=== PATIENT | male | born 1930 | race Caucasian/White ===

== ENCOUNTER 2018-03-29 14:57 | Inpatient (IN) | payer OTHER ==
[2018-03-29 15:09] VITALS: BMI 31.7
--- NOTE | 2018-03-29 16:57 | PDOC ---
Attending Attestation - Resident Resident Name: Joshua Florence - ED Attending Attestation I have performed the following: I have examined & evaluated the patient, The case was reviewed & discussed with the resident, I agree w/resident's findings & plan, Exceptions are as noted - HPI HPI: 03/29/18 18:43 The patient is an 88 year old male, with a significant PMH of Afib on eliquis and has a pacemaker, HTN, pre-diabetic, previous strokes, who presents to the emergency department s/p fall while trying to get out of his wheelchair, and notes hitting his face. Unknown LOC. Pt c/o generalized weakness and states he has fallen 4 times over the last week. Denies LOC, headache, changes in vision, and any pain. The patient denies chest pain, shortness of breath and dizziness. Denies fever, chills, nausea, vomit, diarrhea and constipation. Denies dysuria, frequency, urgency and hematuria. Allergies: Levofloxacin, rosuvastatin, sulfamethoxazole, trimethoprim - Physicial Exam PE: 03/29/18 18:45 agree with resident exam - Medical Decision Making 03/29/18 18:45 88yo M presents to the ED with multiple falls over the last week and generalized weakness. CTH/CT c-spine neg for acute injury. W/u revealing of UTI , -> pt covered with ceftriaxone. UTI likely cause of generalized weakness. Pt also hypotensive initially to 90s/40s, on my repeat 109/60. Plan to admit to for observation. <Natacha Ward - Last Filed: 03/29/18 18:47> Attestations - Attestations 03/29/18 17:18 Documentation prepared by Roopa Elkins, acting as medical claims examiner for Natacha Ward MD. <Roopa Elkins - Last Filed: 03/29/18 17:18>
--- NOTE | 2018-03-29 17:30 | PDOC ---
History of Present Illness - General Chief Complaint: Injury Stated Complaint: FALL Time Seen by Provider: 03/29/18 15:44 History Source: Patient Exam Limitations: No Limitations - History of Present Illness Initial Comments: 03/29/18 19:09 88 yo male pmh DM, HTN, HLD, afib on Eliquis, CAD and CVA (residual right hand weakness) presents from [facility] to the ED for a fall. Pt AOX3 and relatively good historian. States while attempting to get up out of his wheelchair at [employer] this afternoon, he fell forward due to loss of balance and hit his his forehead on the ground. Denies CP, palpitations or SOB prior to fall and denies LOC, DESHPANDE, changes in vision/speech, N/V, or weakness/sensory changes into 1 ext after the fall. Pt currently has no complaints but states he has fallen greater than 3 times in the last 1 weak without medical evaluation. Past History - Past Medical History Allergies/Adverse Reactions: Allergies Allergy/AdvReac Type Severity Reaction Status Date / Time levofloxacin [From Levaquin] Allergy Verified 03/29/18 15:04 rosuvastatin [From Crestor] Allergy Verified 03/29/18 15:04 sulfamethoxazole Allergy Verified 03/29/18 15:04 [From Bactrim] trimethoprim [From Bactrim] Allergy Verified 03/29/18 15:04 Home Medications: Ambulatory Orders Amlodipine Besylate 5 mg PO BID 03/29/18 Apixaban [Eliquis] 5 mg PO BID 03/29/18 Diphenhydramine HCl 25 mg PO DAILY 03/29/18 Fluticasone Prop 0.05% Nasal [Flonase -] 1 - 2 spray NS BID 03/29/18 Folic Acid 1 mg PO DAILY 03/29/18 Furosemide 40 mg PO DAILY 03/29/18 Glipizide Xl [Glucotrol Xl -] 5 mg PO HS 03/29/18 Glipizide Xl [Glucotrol Xl -] 10 mg PO DAILY@0700 03/29/18 Insulin (Levemir) [Levemir Vial] 15 unit SQ DAILY 03/29/18 Loperamide HCl [Loperamide] 2 mg PO PRN PRN 03/29/18 Loratadine 10 mg PO DAILY 03/29/18 Metolazone 2.5 mg PO ASDIR 03/29/18 Omeprazole 20 mg PO DAILY 03/29/18 Oxybutynin Chloride [Ditropan Xl] 10 mg PO BID 03/29/18 Propranolol HCl [Propranolol HCl ER] 160 mg PO DAILY 03/29/18 Propylene Glycol/Peg 400/Pf [Lubricant Eye 0.4%-0.3% Drops] 1 each OP DAILY Simvastatin 20 mg PO HS 03/29/18 Sitagliptin Phosphate [Januvia] 100 mg PO DAILY 03/29/18 Tamsulosin HCl [Flomax] 0.4 mg PO DAILY 03/29/18 Valsartan [Diovan] 80 mg PO DAILY 03/29/18 Cardiac Disorders: Yes (afib,CAD) COPD: No Diabetes: Yes HTN: Yes Hypercholesterolemia: Yes - Suicide/Smoking/Psychosocial Hx Smoking History: Never smoked Have you smoked in the past 12 months: No Information on smoking cessation initiated: No Hx Alcohol Use: No Drug/Substance Use Hx: No Review of Systems - Review of Systems Constitutional: No: Chills, Fever *Physical Exam - Vital Signs Last Vital Signs Temp Pulse Resp BP Pulse Ox 97.1 F L 57 L 18 91/40 L 100 03/29/18 15:04 03/29/18 15:04 03/29/18 15:04 03/29/18 15:04 03/29/18 15:04 Moderate Sedation - Procedure Monitoring Vital Signs: Procedure Monitoring Vital Signs Temperature 97.1 F L 03/29/18 15:04 Pulse Rate 57 L 03/29/18 15:04 Respiratory Rate 18 03/29/18 15:04 Blood Pressure 91/40 L 03/29/18 15:04 O2 Sat by Pulse Oximetry (%) 100 03/29/18 15:04 ED Treatment Course - LABORATORY CBC & Chemistry Diagram: 03/29/18 15:30 03/29/18 15:30 Medical Decision Making - Medical Decision Making 03/29/18 17:02 spoke with vonda htn, hld, dm, cad, afib eliquis 5 mg *DC/Admit/Observation/Transfer Diagnosis at time of Disposition: UTI (urinary tract infection) Qualifiers: Urinary tract infection type: site unspecified Hematuria presence: without hematuria Qualified Code(s): N39.0 - Urinary tract infection, site not specified Fall Qualifiers: Encounter type: subsequent encounter Qualified Code(s): W19.XXXD - Unspecified fall, subsequent encounter - Discharge Dispostion Decision to Admit order: Yes - Referrals - Patient Instructions - Post Discharge Activity
[2018-03-29 17:46] LABS: BASO % 0.8 % (0-2.0); EOS % 7.8 % (0-4.5); HEMATOCRIT 37.7 % (35.4-49); HEMOGLOBIN 12.8 GM/dL (11.7-16.9); LYMPH % 9.2 % (8-40); MCH 29.4 pg (25.7-33.7); MEAN CELL VOLUME 86.5 fl (80-96); MEAN PLT VOLUME 9.3 fl (7.5-11.1); MONO % 10.8 % (3.8-10.2); NEUT % 71.4 % (42.8-82.8); PLATELET COUNT 193 K/MM3 (134-434); RBC 4.36 M/mm3 (4.00-5.60); RDW 15.8 % (11.9-15.9); WHITE BLOOD COUNT 9.2 K/mm3 (4.0-10.0)
[2018-03-29 18:02] LABS: URINE APPEARANCE CLEAR; URINE BILIRUBIN NEGATIVE (<2.0 mg/dL); URINE COLOR LTYELLOW; URINE GLUCOSE (UA) NEGATIVE (NEGATIVE); URINE KETONE NEGATIVE (NEGATIVE); URINE LEUK ESTERASE 1+ (NEGATIVE); URINE NITRITE POSITIVE (NEGATIVE); URINE PROTEIN NEGATIVE (NEGATIVE); URINE UROBILINOGEN NEGATIVE mg/dL (0.2-1.0)
[2018-03-29 18:12] LABS: EPI CELLS RARE /HPF (FEW); URINE HYALINE CAST 3 /lpf; URINE MUCUS RARE
[2018-03-29 18:17] LABS: INR 2.04 (0.83-1.09); PROTHROMBIN TIME (PATIENT) 24.2 SEC (9.7-13.0)
[2018-03-29 18:19] LABS: ACTIVATED PTT 38.1 SECONDS (25.2-36.5)
[2018-03-29] MEDS ORDERED: CEFTRIAXONE 1,000 MG in DEXTROSE 5%-WATER - 50 ML IVPB ONE (18:33)
[2018-03-29] MEDS ORDERED: CEFTRIAXONE 1 GM/50 ML BAG ONE (18:38)
--- NOTE | 2018-03-29 23:02 | HP ---
CHIEF COMPLAINT: Frequent Falls, Generalized Weakness PCP: Dr. Reyes HISTORY OF PRESENT ILLNESS: This is a 88 y/o man from [facility] with a PMHx of: Afib (on Eliquis), PPM, HTN, DM, CVA (right hand residual), CKD, BPH, Generalized Weakness. Who presents to the ED for evaluation frequent falls s/p fall out of w/c today. Patient reports while attending [facility] in the [facility] he fell out of the wheelchair hitting his face. Patient wears glasses and reports an abrasion to the bridge of his nose. Patient reports chronic itching to his body.Patient denies LOC. Patient denies fever, chills, cough, SOB, CP, palpitations, N/V/D, constipation. While in the ED per ED staff bed bugs where noted on the patient. Patient was placed in isolation. ER course was notable for: (1) UA- +nitrate, +1 leukocyte esterase (2) Head CT- no evidence of acute intracranial pathology, chronic left basal ganglia/frontal dominguez radiata infarct (3) C- Spine CT- neg fx, multi level degenerative changes Recent Travel: None PAST MEDICAL HISTORY: See HPI PAST SURGICAL HISTORY: Social History: Smoking: Never Alcohol: None Drugs: None resides in SNF Family History: Non-contributory Allergies levofloxacin [From Levaquin] Allergy (Verified 03/29/18 15:04) rosuvastatin [From Crestor] Allergy (Verified 03/29/18 15:04) sulfamethoxazole [From Bactrim] Allergy (Verified 03/29/18 15:04) trimethoprim [From Bactrim] Allergy (Verified 03/29/18 15:04) HOME MEDICATIONS: Home Medications Medication Instructions Recorded Amlodipine Besylate 5 mg PO BID 03/29/18 Apixaban [Eliquis] 5 mg PO BID 03/29/18 Diphenhydramine HCl 25 mg PO DAILY 03/29/18 Fluticasone Prop 0.05% Nasal 1 - 2 spray NS BID 03/29/18 [Flonase -] Folic Acid 1 mg PO DAILY 03/29/18 Furosemide 40 mg PO DAILY 03/29/18 Glipizide Xl [Glucotrol Xl -] 5 mg PO HS 03/29/18 Glipizide Xl [Glucotrol Xl -] 10 mg PO DAILY@0700 03/29/18 Insulin (Levemir) [Levemir Vial] 15 unit SQ DAILY 03/29/18 Loperamide HCl [Loperamide] 2 mg PO PRN PRN 03/29/18 Loratadine 10 mg PO DAILY 03/29/18 Metolazone 2.5 mg PO ASDIR 03/29/18 Omeprazole 20 mg PO DAILY 03/29/18 Oxybutynin Chloride [Ditropan Xl] 10 mg PO BID 03/29/18 Propranolol HCl [Propranolol HCl 160 mg PO DAILY 03/29/18 ER] Propylene Glycol/Peg 400/Pf 1 each OP DAILY 03/29/18 [Lubricant Eye 0.4%-0.3% Drops] Simvastatin 20 mg PO HS 03/29/18 Sitagliptin Phosphate [Januvia] 100 mg PO DAILY 03/29/18 Tamsulosin HCl [Flomax] 0.4 mg PO DAILY 03/29/18 Valsartan [Diovan] 80 mg PO DAILY 03/29/18 REVIEW OF SYSTEMS CONSTITUTIONAL: generalized weakness Absent: fever, chills, diaphoresis, malaise, loss of appetite, weight change HEENT: abrasion to nare Absent: rhinorrhea, nasal congestion, throat pain, throat swelling, difficulty swallowing, mouth swelling, ear pain, eye pain, visual changes CARDIOVASCULAR: Absent: chest pain, syncope, palpitations, irregular heart rate, lightheadedness , peripheral edema RESPIRATORY: Absent: cough, shortness of breath, dyspnea with exertion, orthopnea, wheezing, stridor, hemoptysis GASTROINTESTINAL: Absent: abdominal pain, abdominal distension, nausea, vomiting, diarrhea, constipation, melena, hematochezia GENITOURINARY: Absent: dysuria, frequency, urgency, hesitancy, hematuria, flank pain, genital pain MUSCULOSKELETAL: Absent: myalgia, arthralgia, joint swelling, back pain, neck pain SKIN: Absent: rash, itching, pallor HEMATOLOGIC/IMMUNOLOGIC: Absent: easy bleeding, easy bruising, lymphadenopathy, frequent infections ENDOCRINE: Absent: unexplained weight gain, unexplained weight loss, heat intolerance, cold intolerance NEUROLOGIC: Absent: headache, focal weakness or paresthesias, dizziness, unsteady gait, seizure, mental status changes, bladder or bowel incontinence PSYCHIATRIC: Absent: anxiety, depression, suicidal or homicidal ideation, hallucinations. PHYSICAL EXAMINATION Vital Signs - 24 hr 03/29/18 03/29/18 15:04 20:02 Temperature 97.1 F L 98.5 F Pulse Rate 57 L Pulse Rate [ 75 Left Radial] Respiratory 18 19 Rate Blood Pressure 91/40 L Blood Pressure 119/62 [Right Arm] O2 Sat by Pulse 100 96 Oximetry (%) GENERAL: Awake, alert, and fully oriented, in no acute distress. HEAD: Normal with no signs of trauma. EYES: Pupils equal, round and reactive to light, extraocular movements intact, sclera anicteric, conjunctiva clear. No lid lag. EARS, NOSE, THROAT: Ears normal, nares patent, oropharynx clear without exudates. Dry mucous membranes. NECK: Normal range of motion, supple without lymphadenopathy, JVD, or masses. LUNGS: Breath sounds equal, clear to auscultation bilaterally. No wheezes, and no crackles. No accessory muscle use. HEART: Irregular rate and rhythm, normal S1 and S2 without murmur, rub or gallop. ABDOMEN: obese, soft, nontender, not distended, normoactive bowel sounds, no guarding, no rebound, no masses. No hepatomegaly or splenomegaly. MUSCULOSKELETAL: Normal range of motion at all joints. No bony deformities or tenderness. No CVA tenderness. UPPER EXTREMITIES: 2+ pulses, warm, well-perfused. No cyanosis. No clubbing. No peripheral edema. LOWER EXTREMITIES: 2+ pulses, warm, well-perfused. No calf tenderness. No peripheral edema. NEUROLOGICAL: Cranial nerves II-XII intact. Normal speech. Gait not observed. PSYCHIATRIC: Cooperative. Good eye contact. Appropriate mood and affect. SKIN: Warm, dry, normal turgor, normal capillary refill. erythematous, pruritic lesions noted to arms, legs, abdomen Laboratory Results - last 24 hr 03/29/18 03/29/18 03/29/18 15:30 15:30 15:35 WBC 9.2 RBC 4.36 Hgb 12.8 Hct 37.7 MCV 86.5 MCH 29.4 MCHC 34.0 RDW 15.8 Plt Count 193 MPV 9.3 Absolute Neuts (auto) 6.6 Neutrophils % 71.4 Lymphocytes % 9.2 Monocytes % 10.8 H Eosinophils % 7.8 H Basophils % 0.8 Nucleated RBC % 0 PT with INR 24.20 H INR 2.04 H PTT (Actin FS) 38.1 H Creatine Kinase Troponin I Urine Color Ltyellow Urine Appearance Clear Urine pH 5.0 Ur Specific Reva 1.010 Urine Protein Negative Urine Glucose (UA) Negative Urine Ketones Negative Urine Blood Negative Urine Nitrite Positive Urine Bilirubin Negative Urine Urobilinogen Negative Ur Leukocyte Esterase 1+ H Urine WBC (Auto) 12 Urine RBC (Auto) 1 Ur Epithelial Cells Rare Hyaline Casts 3 Urine Mucus Rare 03/29/18 17:22 WBC RBC Hgb Hct MCV MCH MCHC RDW Plt Count MPV Absolute Neuts (auto) Neutrophils % Lymphocytes % Monocytes % Eosinophils % Basophils % Nucleated RBC % PT with INR INR PTT (Actin FS) Creatine Kinase 105 Troponin I < 0.02 Urine Color Urine Appearance Urine pH Ur Specific Reva Urine Protein Urine Glucose (UA) Urine Ketones Urine Blood Urine Nitrite Urine Bilirubin Urine Urobilinogen Ur Leukocyte Esterase Urine WBC (Auto) Urine RBC (Auto) Ur Epithelial Cells Hyaline Casts Urine Mucus ASSESSMENT/PLAN: This is a 88 y/o man placed in Observation for UTI, s/p Fall, Bed Bug Bites for further evaluation of their emergent condition. Plan: See Problem List FEN PO fluids as tolerated Replete lytes prn Low Na, Diabetic Diet DVT ppx SCDs Continue Eliquis Code Status: DNR/DNI, MOLST, HCP Mateusz Coronel [phone] Dispo: Observation Problem List - Problem (1) UTI (urinary tract infection) Assessment/Plan: UA- +nitrate, +1 leukocyte esterase Urine Culture-pending Ceftriaxone given in ED, will continue Monitor CBC Monitor vitals Code(s): N39.0 - URINARY TRACT INFECTION, SITE NOT SPECIFIED Qualifiers: Urinary tract infection type: site unspecified Hematuria presence: without hematuria Qualified Code(s): N39.0 - Urinary tract infection, site not specified (2) Fall Assessment/Plan: Head CT- no evidence of acute intracranial pathology. Chronic leftbasal ganglia/ frontal dominguez radiata infarct C- Spine CT- neg fx, multilevel degenerative changes Fall precautions Tylenol prn Code(s): W19.XXXA - UNSPECIFIED FALL, INITIAL ENCOUNTER Qualifiers: Encounter type: subsequent encounter Qualified Code(s): W19.XXXD - Unspecified fall, subsequent encounter (3) Generalized weakness Assessment/Plan: Likely secondary to UTI Monitor CBC, BMP Monitor vitals Neurochecks Fall Precautions Code(s): R53.1 - WEAKNESS (4) Bed bug bite Assessment/Plan: Isolation Precautions ID consult Benadryl for pruritus Code(s): W57.XXXA - BIT/STUNG BY NONVENOM INSECT & OTH NONVENOM ARTHROPODS, INIT (5) Diabetes mellitus Assessment/Plan: stable BGMs Continue home meds Code(s): E11.9 - TYPE 2 DIABETES MELLITUS WITHOUT COMPLICATIONS (6) A-fib Assessment/Plan: [id number] Continue Eliquis EKG- Ventricular Paced Code(s): I48.91 - UNSPECIFIED ATRIAL FIBRILLATION (7) HTN (hypertension) Assessment/Plan: stable Monitor BP Continue home meds Monitor renal function Code(s): I10 - ESSENTIAL (PRIMARY) HYPERTENSION (8) BPH (benign prostatic hyperplasia) Assessment/Plan: Continue home meds Code(s): N40.0 - BENIGN PROSTATIC HYPERPLASIA WITHOUT LOWER URINRY TRACT SYMP (9) History of CVA with residual deficit Assessment/Plan: Head Ct- neg acute intracranial pathology, chronic left basal ganglia/frontal dominguez radiata infarct Continue home meds Fall Precautions Code(s): I69.30 - UNSPECIFIED SEQUELAE OF CEREBRAL INFARCTION Visit type - Emergency Visit Emergency Visit: Yes ED Registration Date: 03/29/18 Care time: The patient presented to the Emergency Department on the above date and was hospitalized for further evaluation of their emergent condition. - New Patient This patient is new to me today: Yes Date on this admission: 03/29/18 - Critical Care Critical Care patient: No
[2018-03-29 23:17] LABS: BLOOD UREA NITROGEN 43 mg/dL (7-18); GLUCOSE,RANDOM 101 mg/dL (74-106)
[2018-03-29 23:18] LABS: ALBUMIN 3.5 g/dl (3.4-5.0); ANION GAP 8 MMOL/L (8-16); BILIRUBIN,TOTAL 0.4 mg/dL (0.2-1); CALCIUM 9.1 mg/dL (8.5-10.1); CHLORIDE 99 mmol/L (98-107); CO2 29 mmol/L (21-32); CREATININE 1.4 mg/dL (0.55-1.3); POTASSIUM 3.8 mmol/L (3.5-5.1); SGOT/AST 43 U/L (15-37); SGPT/ALT 30 U/L (13-61); SODIUM 136 mmol/L (136-145)
[2018-03-29 23:19] LABS: ALK PHOS 185 U/L (45-117)
[2018-03-30] MEDS ORDERED: ACETAMINOPHEN 325 MG TABLET (FP) PO PRN (01:29)
[2018-03-30] MEDS ORDERED: LOPERAMIDE HCL 2 MG CAPSULE PO PRN (01:41)
[2018-03-30] MEDS ORDERED: diphenhydrAMINE HCL 25 MG CAPSULE (FP) PO PRN (01:41)
[2018-03-30] MEDS ORDERED: PT OWN MED DRAWER 7, Y5N ONE ×3 (06:48→21:34)
[2018-03-30] MEDS ORDERED: glipiZIDE-XL 10 MG TAB.ER.24 (FP) PO SCH (07:00)
[2018-03-30] MEDS ORDERED: sitaGLIPtin PHOSPHATE 100 MG TABLET (FP) PO SCH (07:00)
[2018-03-30 07:34] LABS: BASO % 0.4 % (0-2.0); EOS % 6.4 % (0-4.5); HEMATOCRIT 34.9 % (35.4-49); HEMOGLOBIN 11.8 GM/dL (11.7-16.9); LYMPH % 7.9 % (8-40); MCH 28.9 pg (25.7-33.7); MCHC 33.8 g/dl (32.0-35.9); MEAN CELL VOLUME 85.5 fl (80-96); MEAN PLT VOLUME 9.3 fl (7.5-11.1); MONO % 9.8 % (3.8-10.2); NEUT % 75.5 % (42.8-82.8); PLATELET COUNT 174 K/MM3 (134-434); RBC 4.08 M/mm3 (4.00-5.60); RDW 15.4 % (11.9-15.9); WHITE BLOOD COUNT 8.9 K/mm3 (4.0-10.0)
[2018-03-30 08:24] LABS: ANION GAP 9 MMOL/L (8-16); BLOOD UREA NITROGEN 37 mg/dL (7-18); CALCIUM 8.5 mg/dL (8.5-10.1); CHLORIDE 100 mmol/L (98-107); CO2 28 mmol/L (21-32); CREATININE 1.2 mg/dL (0.55-1.3); GLUCOSE,RANDOM 106 mg/dL (74-106); MAGNESIUM 2.2 mg/dL (1.8-2.4); PHOSPHOROUS 3.3 mg/dL (2.5-4.9); POTASSIUM 3.6 mmol/L (3.5-5.1); SODIUM 137 mmol/L (136-145)
[2018-03-30] MEDS ORDERED: TAMSULOSIN HCL 0.4 MG CAP PO SCH (08:30)
[2018-03-30] MEDS ORDERED: DEXTROSE 5%-WATER - 50 ML IVPB ONE (09:12)
[2018-03-30] MEDS ORDERED: cefTRIAXone SODIUM 1 GM VIAL ONE (09:12)
[2018-03-30] MEDS ORDERED: PATIENT'S OWN MEDICATION (NON-FORMULARY) (Oxybutynin Chloride [Ditropan Xl] 10 MG) PO SCH (10:00)
[2018-03-30] MEDS: FUROSEMIDE 40 MG TABLET (FP) PO SCH (10:06)
[2018-03-30] MEDS: SOLIFENACIN SUCCINATE 5 MG TAB (FP) PO SCH ×2 (10:06→21:43)
[2018-03-30] MEDS: LORATADINE 10 MG TABLET PO SCH (10:06)
[2018-03-30] MEDS: PANTOPRAZOLE 20 MG TABLET (FP) PO SCH (10:06)
[2018-03-30] MEDS: METOLAZONE 2.5 MG TABLET (FP) PO SCH (10:07)
[2018-03-30] MEDS: FOLIC ACID 1 MG TABLET (FP) PO SCH (10:07)
[2018-03-30] MEDS: CEFTRIAXONE 1 GM in DEXTROSE 5%-WATER - 50 ML IVPB SCH (10:07)
[2018-03-30] MEDS: VALSARTAN 80 MG TABLET (UD) PO SCH (10:07)
[2018-03-30] MEDS: FLUTICASONE PROP 0.05% 16 GM NASAL SPRAY NS SCH ×2 (10:07→21:43)
[2018-03-30] MEDS: APIXABAN 5 MG TABLET PO SCH ×2 (10:07→21:43)
--- NOTE | 2018-03-30 10:53 | PN ---
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 s/p fall out of w/c- denies syncope has scratch cordero on chest, arms and legs papular rash on chest no rash groin/hands, elbows, wrists no dysuria +frequent falls both at prior residence and at the [facility] uses a w/c no one else with a rash labs notable for eosinophilia s/p fall rash- doubt bedbugs cannot r/o scabies would treat with permethrin suggest derm evaluation- ?biopsy chest rash possible UTI- on rocephin, would d/c if culture is negative contact isolation for 24 hours after permethrin is complete Problem List - Problems (1) Fall Code(s): W19.XXXA - UNSPECIFIED FALL, INITIAL ENCOUNTER Qualifiers: Encounter type: subsequent encounter Qualified Code(s): W19.XXXD - Unspecified fall, subsequent encounter (2) Rash and nonspecific skin eruption Code(s): R21 - RASH AND OTHER NONSPECIFIC SKIN ERUPTION (3) UTI (urinary tract infection) Code(s): N39.0 - URINARY TRACT INFECTION, SITE NOT SPECIFIED Qualifiers: Urinary tract infection type: site unspecified Hematuria presence: without hematuria Qualified Code(s): N39.0 - Urinary tract infection, site not specified
[2018-03-30] MEDS ORDERED: PERMETHRIN 5% TOPICAL CREAM 60 GM TUBE TP ONE (11:30)
--- NOTE | 2018-03-30 11:44 | EKG ---
Test Reason : Blood Pressure : / mmHG Vent. Rate : 052 BPM Atrial Rate : 050 BPM P-R Int : 000 ms QRS Dur : 126 ms QT Int : 478 ms P-R-T Axes : 000 -01 011 degrees QTc Int : 444 ms Ventricular-paced rhythm ATRIAL FIBRILLATION ABNORMAL ECG NO PREVIOUS ECGS AVAILABLE Confirmed by JOHN LOPEZ MD ([id number]) on 03/30/2018 11:43:54 AM Referred By: Confirmed By:JOHN LOPEZ MD
--- NOTE | 2018-03-30 12:07 | PN ---
Progress Note, Physician History of Present Illness: pt seen/ examined chart reviewed awake/ comfortable c/c - itching denies cp/sob/abd pain afebrile denies urinary burning - Current Medication List Current Medications: Active Medications Acetaminophen (Tylenol -) 650 mg PO Q6H PRN PRN Reason: PAIN OR FEVER Apixaban (Eliquis -) 5 mg PO BID [facility] Last Admin: 03/30/18 10:07 Dose: 5 mg Artificial Tears (Artificial Tears) 1 drop OU BID [facility] Atorvastatin Calcium (Lipitor -) 10 mg PO HS [facility] Diphenhydramine HCl (Benadryl -) 25 mg PO DAILY PRN PRN Reason: FOR ITCHING Fluticasone Propionate (Flonase -) 2 spray NS BID [facility] Last Admin: 03/30/18 10:07 Dose: 2 sprays Folic Acid (Folic Acid -) 1 mg PO DAILY [facility] Last Admin: 03/30/18 10:07 Dose: 1 mg Furosemide (Lasix -) 40 mg PO DAILY [facility] Last Admin: 03/30/18 10:06 Dose: 40 mg Glipizide (Glucotrol Xl -) 5 mg PO DAILY@1800 [facility] Glipizide (Glucotrol Xl -) 10 mg PO DAILY@0700 [facility] Last Admin: 03/30/18 08:05 Dose: 10 mg Ceftriaxone Sodium 1 gm/ (Dextrose) 50 mls @ 100 mls/hr IVPB DAILY [facility]; Protocol Last Admin: 03/30/18 10:07 Dose: 100 mls/hr Loperamide HCl (Imodium -) 2 mg PO PRN PRN PRN Reason: DIARRHEA Loratadine (Claritin -) 10 mg PO DAILY [facility] Last Admin: 03/30/18 10:06 Dose: 10 mg Metolazone (Zaroxolyn -) 2.5 mg PO MOWEFR@1000 [facility] Last Admin: 03/30/18 10:07 Dose: 2.5 mg Pantoprazole Sodium (Protonix -) 20 mg PO DAILY [facility] Last Admin: 03/30/18 10:06 Dose: 20 mg Propranolol HCl (Inderal La -) 160 mg PO DAILY [facility] Last Admin: 03/30/18 10:07 Dose: 160 mg Sitagliptin Phosphate (Januvia -) 100 mg PO DAILY@0700 [facility] Last Admin: 03/30/18 07:35 Dose: 100 mg Solifenacin (Vesicare -) 5 mg PO BID [facility] Last Admin: 03/30/18 10:06 Dose: 5 mg Tamsulosin HCl (Flomax -) 0.4 mg PO DAILY@0830 [facility] Last Admin: 03/30/18 09:06 Dose: 0.4 mg Valsartan (Diovan -) 80 mg PO DAILY [facility] Last Admin: 03/30/18 10:07 Dose: 80 mg - Objective Vital Signs: Vital Signs Temperature 97.9 F 03/30/18 09:03 Pulse Rate 72 03/30/18 09:03 Respiratory Rate 16 03/30/18 09:03 Blood Pressure 134/59 L 03/30/18 09:03 O2 Sat by Pulse Oximetry (%) 96 03/30/18 02:54 Constitutional: Yes: No Distress, Calm Eyes: Yes: Conjunctiva Clear Neck: Yes: Supple Cardiovascular: Yes: Regular Rate and Rhythm Respiratory: Yes: CTA Bilaterally Gastrointestinal: Yes: Soft Edema: No Integumentary: Yes: Rash Neurological: Yes: Alert, Pre-Existing Deficit (rue - weakness) Psychiatric: Yes: Alert Labs: CBC, BMP 03/30/18 06:00 03/30/18 06:00 INR, PTT INR 2.04 (0.83-1.09) H 03/29/18 15:30 - ....Imaging Cat Scan: Report Reviewed Problem List - Problems (1) Frequent falls Code(s): R29.6 - REPEATED FALLS (2) Rash and nonspecific skin eruption Code(s): R21 - RASH AND OTHER NONSPECIFIC SKIN ERUPTION (3) A-fib Code(s): I48.91 - UNSPECIFIED ATRIAL FIBRILLATION (4) Diabetes mellitus Code(s): E11.9 - TYPE 2 DIABETES MELLITUS WITHOUT COMPLICATIONS (5) Fall Code(s): W19.XXXA - UNSPECIFIED FALL, INITIAL ENCOUNTER Qualifiers: Encounter type: subsequent encounter Qualified Code(s): W19.XXXD - Unspecified fall, subsequent encounter (6) History of CVA with residual deficit Code(s): I69.30 - UNSPECIFIED SEQUELAE OF CEREBRAL INFARCTION (7) UTI (urinary tract infection) Code(s): N39.0 - URINARY TRACT INFECTION, SITE NOT SPECIFIED Qualifiers: Urinary tract infection type: site unspecified Hematuria presence: without hematuria Qualified Code(s): N39.0 - Urinary tract infection, site not specified Assessment/Plan monitor contact isolation Prematharine abx for uti agree to d/c if cultures -ve fall 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
[2018-03-30] MEDS: ARTIFICIAL TEARS (POLYVINYL ALCOHOL) OPTH DROPS OU SCH ×2 (12:13→21:44)
--- NOTE | 2018-03-30 13:57 | CONS ---
DATE OF CONSULTATION: DATE OF DICTATION: 03/30/2018 REQUESTING PHYSICIAN: Brian Corbin MD HISTORY OF PRESENT ILLNESS: This is an 88-year-old Darek cline who is currently residing at the [facility]. He reports that until very recently he had been living in a home for retired priests in [place], and after the home closed, he moved to [facility]. He thinks he has been there for about a week. He reports a history of frequent falls, which he says he has had forever. He says his legs are very weak and he currently uses a wheelchair. He was apparently brought to the hospital because while attending mass in the [facility], he fell out of his wheelchair hitting his face, and he had an abrasion to his nose. He has a history of chronic itching, he says, for the last 2 years. It is unclear if he has ever seen a debt management counselor. There is no history of fevers, chills, nausea, vomiting, or diarrhea. I am asked to see him to evaluate his rash. PAST MEDICAL HISTORY: Notable for atrial fibrillation, permanent pacemaker, hypertension, diabetes, CVA, chronic kidney disease, BPH, and generalized weakness. SOCIAL HISTORY: There is no history of cigarette, alcohol, or substance use. 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 FAMILY HISTORY: Noncontributory. ALLERGIES: She is allergic to LEVAQUIN, CRESTOR, and BACTRIM. MEDICATIONS: At the senior care include amlodipine, apixaban, Benadryl, fluticasone, nasal spray, folic acid, furosemide, glipizide, insulin, metolazone, omeprazole, Ditropan, propranolol, Januvia, simvastatin, Flomax, Diovan, and he was prior on hydroxyzine and on Julia. REVIEW OF SYSTEMS: Notable for the abrasion to his nose. He is awake and alert. He has no chest pain or abdominal pain. He denies any dysuria. PHYSICAL EXAMINATION Vital signs: Temperature is 97.9; pulse is 72, blood pressure 134/59, respiratory rate 16. HEENT: He is normocephalic. His eyes are anicteric. Neck: Supple. Lungs: Clear to auscultation. Heart: Regular rate and rhythm. Abdomen: Soft, nontender. He has no CVA or suprapubic tenderness. Extremities: Without edema. Skin: Notable for multiple excoriations. He has scratch cordero on both his thighs as well as on his upper arms. He has a papular rash on his chest. He has no rash between his fingers or his legs. He has no rash on his back. He has no rash on any of his intertriginous areas. There is no evidence of any bedbugs on his sheets or any generalized on his sheets. DIAGNOSTIC DATA: Labs are notable for a white count of 8.9, hemoglobin 11.8, platelets 174, eosinophils of 6.4. INR 2. BUN 37, creatinine 1.2. He has an AST of 43 and alkaline phosphatase of 185. Urinalysis has 1+ leukocytes and [address] scan of the head and cervical spine were done, and there is evidence of a chronic left basal ganglia frontal infarct and no acute pathology. Cervical spine CT shows no fracture. SUMMARY: 1. This is an elderly man status post fall. I am asked to see for rash. I doubt bedbugs, cannot rule out scabies. Would treat him with permethrin. Would suggest dermatology evaluation. The rash on his chest needs to be biopsied. The eosinophilia suggests possibly an allergic component, but if this has been present 2 years, a biopsy would certainly be indicated either inpatient or outpatient. 2. Possible urinary tract infection. On Rocephin. Would stop antibiotics if the urine culture is negative. 3. Lastly, contact isolation, which needs to be continued for 24 hours after the permethrin is completed. SKYE RAMON M.D. [id number]
--- NOTE | 2018-03-30 15:01 | EKG ---
Test Reason : Blood Pressure : / mmHG Vent. Rate : 059 BPM Atrial Rate : 060 BPM P-R Int : 000 ms QRS Dur : 166 ms QT Int : 480 ms P-R-T Axes : 000 -01 130 degrees QTc Int : 475 ms Ventricular-paced rhythm ABNORMAL ECG WHEN COMPARED WITH ECG OF 29-MAR-2018 15:11, VENT. RATE HAS INCREASED BY 7 BPM Confirmed by JOHN LOPEZ MD ([id number]) on 03/30/2018 3:00:47 PM Referred By: LUIS MCCAULEY Confirmed By:JOHN LOPEZ MD
[2018-03-30] MEDS: INSULIN SLIDING SCALE (NOVOLOG) 1 VIAL SQ SCH (17:25)
[2018-03-30] MEDS ORDERED: glipiZIDE-XL 5 MG TAB.ER.24 PO SCH (18:00)
[2018-03-30] MEDS: ATORVASTATIN CA 10 MG TABLET (FP) PO SCH (21:43)
[2018-03-31] MEDS: INSULIN SLIDING SCALE (NOVOLOG) 1 VIAL SQ SCH ×2 (06:58→16:33)
[2018-03-31 08:01] LABS: BASO % 0.5 % (0-2.0); EOS % 6.9 % (0-4.5); HEMATOCRIT 35.7 % (35.4-49); LYMPH % 9.7 % (8-40); MCH 28.9 pg (25.7-33.7); MCHC 33.7 g/dl (32.0-35.9); MEAN CELL VOLUME 85.9 fl (80-96); NEUT % 71.9 % (42.8-82.8); PLATELET COUNT 164 K/MM3 (134-434); RBC 4.16 M/mm3 (4.00-5.60); RDW 15.8 % (11.9-15.9); WHITE BLOOD COUNT 8.3 K/mm3 (4.0-10.0)
[2018-03-31 08:46] LABS: ALBUMIN 3.2 g/dl (3.4-5.0); ALK PHOS 168 U/L (45-117); ANION GAP 8 MMOL/L (8-16); BILIRUBIN,TOTAL 0.6 mg/dL (0.2-1); BLOOD UREA NITROGEN 33 mg/dL (7-18); CALCIUM 8.6 mg/dL (8.5-10.1); CHLORIDE 100 mmol/L (98-107); CO2 30 mmol/L (21-32); CREATININE 1.2 mg/dL (0.55-1.3); GLUCOSE,RANDOM 107 mg/dL (74-106); POTASSIUM 3.5 mmol/L (3.5-5.1); SGOT/AST 41 U/L (15-37); SGPT/ALT 26 U/L (13-61); SODIUM 138 mmol/L (136-145); TOT PROT 6.6 g/dl (6.4-8.2)
[2018-03-31] MEDS ORDERED: PT OWN MED DRAWER 7, Y5N ONE ×2 (09:46→19:17)
[2018-03-31] MEDS ORDERED: DEXTROSE 5%-WATER - 50 ML IVPB ONE (09:46)
[2018-03-31] MEDS ORDERED: cefTRIAXone SODIUM 1 GM VIAL ONE (09:46)
[2018-03-31] MEDS: CEFTRIAXONE 1 GM in DEXTROSE 5%-WATER - 50 ML IVPB SCH (09:48)
[2018-03-31] MEDS: FOLIC ACID 1 MG TABLET (FP) PO SCH (09:50)
[2018-03-31] MEDS: VALSARTAN 80 MG TABLET (UD) PO SCH (09:50)
[2018-03-31] MEDS: APIXABAN 5 MG TABLET PO SCH ×2 (09:50→23:06)
[2018-03-31] MEDS: FUROSEMIDE 40 MG TABLET (FP) PO SCH (09:50)
[2018-03-31] MEDS: PANTOPRAZOLE 20 MG TABLET (FP) PO SCH (09:50)
[2018-03-31] MEDS: LORATADINE 10 MG TABLET PO SCH (09:50)
[2018-03-31] MEDS: SOLIFENACIN SUCCINATE 5 MG TAB (FP) PO SCH ×2 (09:50→23:06)
[2018-03-31] MEDS: FLUTICASONE PROP 0.05% 16 GM NASAL SPRAY NS SCH (09:51)
[2018-03-31] MEDS: ARTIFICIAL TEARS (POLYVINYL ALCOHOL) OPTH DROPS OU SCH (09:55)
--- NOTE | 2018-03-31 13:03 | PN ---
Progress Note (short form) - Note Progress Note: Events noted chronic itching in skin confused As per NH papers-- no mention of cognitive decline, dementia. But pt is having occasional outburts here no distress c/o itching diffuse no SOB, abd pain , dysuria Tells me that he "always " gets UTI Vital Signs - 24 hr 03/30/18 03/30/18 03/30/18 14:00 14:25 18:20 Temperature 97.6 F 97.4 F L Pulse Rate 66 74 Respiratory 16 18 Rate Blood Pressure 106/53 L 120/63 O2 Sat by Pulse 98 Oximetry (%) 03/30/18 03/31/18 03/31/18 22:00 06:00 09:00 Temperature 97.8 F 98 F Pulse Rate 83 82 Respiratory 18 18 18 Rate Blood Pressure 140/66 126/78 O2 Sat by Pulse 94 L 94 L Oximetry (%) 03/31/18 10:00 Temperature 97.6 F Pulse Rate 63 Respiratory 18 Rate Blood Pressure 111/63 O2 Sat by Pulse Oximetry (%) Current Medications Generic Name Dose Route Start Last Admin Trade Name Freq PRN Reason Stop Dose Admin Acetaminophen 650 mg 03/30/18 01:29 03/31/18 11:12 Tylenol - PO 650 mg Q6H PRN Administration PAIN OR FEVER Apixaban 5 mg 03/30/18 10:00 03/31/18 09:50 Eliquis - PO 5 mg BID ANNIE Administration Artificial Tears 1 drop 03/30/18 10:00 03/31/18 09:55 Artificial Tears OU 1 drop BID ANNIE Administration Atorvastatin Calcium 10 mg 03/30/18 22:00 03/30/18 21:43 Lipitor - PO 10 mg HS ANNIE Administration Diphenhydramine HCl 25 mg 03/30/18 01:41 Benadryl - PO DAILY PRN FOR ITCHING Fluticasone Propionate 2 spray 03/30/18 10:00 03/31/18 09:51 Flonase - NS 2 sprays BID ANNIE Administration Folic Acid 1 mg 03/30/18 10:00 03/31/18 09:50 Folic Acid - PO 1 mg DAILY ANNIE Administration Furosemide 40 mg 03/30/18 10:00 03/31/18 09:50 Lasix - PO 40 mg DAILY ANNIE Administration Ceftriaxone Sodium 1 gm/ 50 mls @ 100 mls/hr 03/30/18 10:00 03/31/18 09:48 Dextrose IVPB 100 mls/hr DAILY ANNIE Administration Protocol Insulin Aspart 1 vial 03/30/18 16:30 03/31/18 06:58 Novolog Vial Sliding Scale - SQ Not Given BIDAC [facility] Protocol Loperamide HCl 2 mg 03/30/18 01:41 Imodium - PO PRN PRN DIARRHEA Loratadine 10 mg 03/30/18 10:00 03/31/18 09:50 Claritin - PO 10 mg DAILY ANNIE Administration Metolazone 2.5 mg 03/30/18 10:00 03/30/18 10:07 Zaroxolyn - PO 2.5 mg MOWEFR@1000 ANNIE Administration Pantoprazole Sodium 20 mg 03/30/18 10:00 03/31/18 09:50 Protonix - PO 20 mg DAILY ANNIE Administration Propranolol HCl 160 mg 03/30/18 10:00 03/31/18 09:51 Inderal La - PO 160 mg DAILY ANNIE Administration Solifenacin 5 mg 03/30/18 10:00 03/31/18 09:50 Vesicare - PO 5 mg BID ANNIE Administration Valsartan 80 mg 03/30/18 10:00 03/31/18 09:50 Diovan - PO 80 mg DAILY ANNIE Administration Laboratory Results - last 24 hr 03/30/18 03/31/18 03/31/18 17:18 06:17 06:30 WBC 8.3 RBC 4.16 Hgb 12.0 Hct 35.7 MCV 85.9 MCH 28.9 MCHC 33.7 RDW 15.8 Plt Count 164 MPV 9.0 Absolute Neuts (auto) 6.0 Neutrophils % 71.9 Lymphocytes % 9.7 D Monocytes % 11.0 H Eosinophils % 6.9 H Basophils % 0.5 Nucleated RBC % 0 Sodium Potassium Chloride Carbon Dioxide Anion Gap BUN Creatinine Creat Clearance w eGFR POC Glucometer 143 121 Random Glucose Hemoglobin A1c % Calcium Total Bilirubin AST ALT Alkaline Phosphatase Total Protein Albumin TSH 03/31/18 03/31/18 06:30 06:30 WBC RBC Hgb Hct MCV MCH MCHC RDW Plt Count MPV Absolute Neuts (auto) Neutrophils % Lymphocytes % Monocytes % Eosinophils % Basophils % Nucleated RBC % Sodium 138 Potassium 3.5 Chloride 100 Carbon Dioxide 30 Anion Gap 8 BUN 33 H Creatinine 1.2 Creat Clearance w eGFR 57.01 POC Glucometer Random Glucose 107 H Hemoglobin A1c % 7.3 H Calcium 8.6 Total Bilirubin 0.6 AST 41 H ALT 26 Alkaline Phosphatase 168 H Total Protein 6.6 Albumin 3.2 L TSH 3.65 No pallor S1 S2 irregular Lungs clear Abd- soft,obese, NT NO edema Skin-- diffuse papular lesions, scratch cordero all over arms, chest No burrows in fingerwebs PLAN confused IV antibiotics-- urine cultures are positive s/p permethrin contact isolation ID eval noted Will consult Dermatology continue with meds Problem List - Problems (1) A-fib Code(s): I48.91 - UNSPECIFIED ATRIAL FIBRILLATION (2) Toxic metabolic encephalopathy Code(s): G92 - TOXIC ENCEPHALOPATHY (3) Diabetes mellitus Code(s): E11.9 - TYPE 2 DIABETES MELLITUS WITHOUT COMPLICATIONS Qualifiers: Diabetes mellitus type: type 1 (4) Fall Code(s): W19.XXXA - UNSPECIFIED FALL, INITIAL ENCOUNTER Qualifiers: Encounter type: subsequent encounter Qualified Code(s): W19.XXXD - Unspecified fall, subsequent encounter (5) Frequent falls Code(s): R29.6 - REPEATED FALLS (6) Generalized weakness Code(s): R53.1 - WEAKNESS (7) HTN (hypertension) Code(s): I10 - ESSENTIAL (PRIMARY) HYPERTENSION Qualifiers: Hypertension type: essential hypertension Qualified Code(s): I10 - Essential (primary) hypertension (8) History of CVA with residual deficit Code(s): I69.30 - UNSPECIFIED SEQUELAE OF CEREBRAL INFARCTION (9) Rash and nonspecific skin eruption Code(s): R21 - RASH AND OTHER NONSPECIFIC SKIN ERUPTION (10) UTI (urinary tract infection) Code(s): N39.0 - URINARY TRACT INFECTION, SITE NOT SPECIFIED Qualifiers: Urinary tract infection type: site unspecified Hematuria presence: without hematuria Qualified Code(s): N39.0 - Urinary tract infection, site not specified
[2018-03-31] MEDS: INSULIN (LEVEMIR) 100 UNITS/ML UNITS SQ SCH (23:06)
[2018-03-31] MEDS: ATORVASTATIN CA 10 MG TABLET (FP) PO SCH (23:06)
[2018-04-01] MEDS: ARTIFICIAL TEARS (POLYVINYL ALCOHOL) OPTH DROPS OU SCH ×3 (00:11→22:23)
[2018-04-01] MEDS: FLUTICASONE PROP 0.05% 16 GM NASAL SPRAY NS SCH ×3 (00:11→22:22)
[2018-04-01] MEDS: INSULIN SLIDING SCALE (NOVOLOG) 1 VIAL SQ SCH ×2 (06:53→17:09)
--- NOTE | 2018-04-01 09:22 | PN ---
Progress Note (short form) - Note Progress Note: chronic itching in skin confused c/o itching diffuse no SOB, abd pain , dysuria 2 Vital Signs - 24 hr 03/31/18 03/31/18 04/01/18 18:00 20:00 00:00 Temperature 97.2 F L 97.6 F 97.6 F Pulse Rate 56 L 83 60 Respiratory 18 18 18 Rate Blood Pressure 114/55 L 124/67 125/65 O2 Sat by Pulse Oximetry (%) 04/01/18 04/01/18 04/01/18 01:00 05:55 09:00 Temperature 98.3 F 97.5 F L Pulse Rate 69 59 L Respiratory 18 18 20 Rate Blood Pressure 104/55 L 103/47 L O2 Sat by Pulse 94 L Oximetry (%) Current Medications Generic Name Dose Route Start Last Admin Trade Name Freq PRN Reason Stop Dose Admin Acetaminophen 650 mg 03/30/18 01:29 03/31/18 11:12 Tylenol - PO 650 mg Q6H PRN Administration PAIN OR FEVER Apixaban 5 mg 03/30/18 10:00 04/01/18 10:30 Eliquis - PO 5 mg BID ANNIE Administration Artificial Tears 1 drop 03/30/18 10:00 04/01/18 10:47 Artificial Tears OU 1 drop BID ANNIE Administration Atorvastatin Calcium 10 mg 03/30/18 22:00 03/31/18 23:06 Lipitor - PO 10 mg HS ANNIE Administration Betamethasone Valerate 1 applic 04/01/18 10:00 04/01/18 10:29 Valisone 0.1% Cream - TP 1 applic BID ANNIE Administration Diphenhydramine HCl 50 mg 04/01/18 10:00 04/01/18 10:30 Benadryl - PO 50 mg BID ANNIE Administration Fluticasone Propionate 2 spray 03/30/18 10:00 04/01/18 10:47 Flonase - NS 2 sprays BID ANNIE Administration Folic Acid 1 mg 03/30/18 10:00 04/01/18 10:30 Folic Acid - PO 1 mg DAILY ANNIE Administration Furosemide 40 mg 03/30/18 10:00 04/01/18 10:30 Lasix - PO 40 mg DAILY ANNIE Administration Insulin Aspart 1 vial 03/30/18 16:30 04/01/18 17:09 Novolog Vial Sliding Scale - SQ Not Given BIDAC [facility] Protocol Insulin Detemir 15 units 03/31/18 22:00 03/31/18 23:06 Levemir Vial SQ 15 units HS [facility] Administration Loperamide HCl 2 mg 03/30/18 01:41 Imodium - PO PRN PRN DIARRHEA Loratadine 10 mg 03/30/18 10:00 04/01/18 10:30 Claritin - PO 10 mg DAILY ANNIE Administration Metolazone 2.5 mg 03/30/18 10:00 03/30/18 10:07 Zaroxolyn - PO 2.5 mg MOWEFR@1000 ANNIE Administration Pantoprazole Sodium 20 mg 03/30/18 10:00 04/01/18 10:30 Protonix - PO 20 mg DAILY ANNIE Administration Propranolol HCl 160 mg 03/30/18 10:00 04/01/18 10:30 Inderal La - PO 160 mg DAILY ANNIE Administration Solifenacin 5 mg 03/30/18 10:00 04/01/18 10:30 Vesicare - PO 5 mg BID ANNIE Administration Valsartan 80 mg 03/30/18 10:00 04/01/18 10:30 Diovan - PO 80 mg DAILY ANNIE Administration Laboratory Results - last 24 hr 03/31/18 04/01/18 04/01/18 23:09 06:27 17:07 POC Glucometer 135 110 146 No pallor S1 S2 irregular Lungs clear Abd- soft,obese, NT NO edema Skin-- diffuse papular lesions, scratch cordero all over arms, chest No burrows in fingerwebs PLAN confused IV antibiotics per ID s/p permethrin contact isolation ID eval noted Derm consult as outpt betamethasone cream BID to affected areas, bemadryl prn Problem List - Problems (1) A-fib Code(s): I48.91 - UNSPECIFIED ATRIAL FIBRILLATION (2) Toxic metabolic encephalopathy Code(s): G92 - TOXIC ENCEPHALOPATHY (3) Diabetes mellitus Code(s): E11.9 - TYPE 2 DIABETES MELLITUS WITHOUT COMPLICATIONS Qualifiers: Diabetes mellitus type: type 1 (4) Fall Code(s): W19.XXXA - UNSPECIFIED FALL, INITIAL ENCOUNTER Qualifiers: Encounter type: subsequent encounter Qualified Code(s): W19.XXXD - Unspecified fall, subsequent encounter (5) Frequent falls Code(s): R29.6 - REPEATED FALLS (6) Generalized weakness Code(s): R53.1 - WEAKNESS (7) HTN (hypertension) Code(s): I10 - ESSENTIAL (PRIMARY) HYPERTENSION Qualifiers: Hypertension type: essential hypertension Qualified Code(s): I10 - Essential (primary) hypertension (8) History of CVA with residual deficit Code(s): I69.30 - UNSPECIFIED SEQUELAE OF CEREBRAL INFARCTION (9) Rash and nonspecific skin eruption Code(s): R21 - RASH AND OTHER NONSPECIFIC SKIN ERUPTION (10) UTI (urinary tract infection) Code(s): N39.0 - URINARY TRACT INFECTION, SITE NOT SPECIFIED Qualifiers: Urinary tract infection type: site unspecified Hematuria presence: without hematuria Qualified Code(s): N39.0 - Urinary tract infection, site not specified
[2018-04-01] MEDS ORDERED: cefTRIAXone SODIUM 1 GM VIAL ONE (10:27)
[2018-04-01] MEDS ORDERED: DEXTROSE 5%-WATER - 50 ML IVPB ONE (10:27)
[2018-04-01] MEDS ORDERED: PT OWN MED DRAWER 7, Y5N ONE (10:27)
[2018-04-01] MEDS: BETAMETHASONE VALERATE 0.1% CREAM 15 GM TUBE TP SCH ×2 (10:29→22:23)
[2018-04-01] MEDS: CEFTRIAXONE 1 GM in DEXTROSE 5%-WATER - 50 ML IVPB SCH (10:29)
[2018-04-01] MEDS: LORATADINE 10 MG TABLET PO SCH (10:30)
[2018-04-01] MEDS: PANTOPRAZOLE 20 MG TABLET (FP) PO SCH (10:30)
[2018-04-01] MEDS: diphenhydrAMINE HCL 25 MG CAPSULE (FP) PO SCH ×2 (10:30→22:22)
[2018-04-01] MEDS: APIXABAN 5 MG TABLET PO SCH ×2 (10:30→22:22)
[2018-04-01] MEDS: SOLIFENACIN SUCCINATE 5 MG TAB (FP) PO SCH ×2 (10:30→22:22)
[2018-04-01] MEDS: FUROSEMIDE 40 MG TABLET (FP) PO SCH (10:30)
[2018-04-01] MEDS: VALSARTAN 80 MG TABLET (UD) PO SCH (10:30)
[2018-04-01] MEDS: FOLIC ACID 1 MG TABLET (FP) PO SCH (10:30)
--- NOTE | 2018-04-01 16:48 | PN ---
Progress Note, Physician History of Present Illness: AWAKE, ALERT STILL WITH RASH NO C/O PRURITIS RECEIVED APPLICATION OF ELIMITE NO URINARY TRACT COMPLAINTS - Current Medication List Current Medications: Active Medications Acetaminophen (Tylenol -) 650 mg PO Q6H PRN PRN Reason: PAIN OR FEVER Last Admin: 03/31/18 11:12 Dose: 650 mg Apixaban (Eliquis -) 5 mg PO BID [facility] Last Admin: 04/01/18 10:30 Dose: 5 mg Artificial Tears (Artificial Tears) 1 drop OU BID [facility] Last Admin: 04/01/18 10:47 Dose: 1 drop Atorvastatin Calcium (Lipitor -) 10 mg PO [facility] Last Admin: 03/31/18 23:06 Dose: 10 mg Betamethasone Valerate (Valisone 0.1% Cream -) 1 applic TP BID [facility] Last Admin: 04/01/18 10:29 Dose: 1 applic Diphenhydramine HCl (Benadryl -) 50 mg PO BID [facility] Last Admin: 04/01/18 10:30 Dose: 50 mg Fluticasone Propionate (Flonase -) 2 spray NS BID [facility] Last Admin: 04/01/18 10:47 Dose: 2 sprays Folic Acid (Folic Acid -) 1 mg PO DAILY [facility] Last Admin: 04/01/18 10:30 Dose: 1 mg Furosemide (Lasix -) 40 mg PO DAILY [facility] Last Admin: 04/01/18 10:30 Dose: 40 mg Insulin Aspart (Novolog Vial Sliding Scale -) [address] [facility] Protocol Last Admin: 04/01/18 06:53 Dose: Not Given Insulin Detemir (Levemir Vial) 15 units SQ [facility] Last Admin: 03/31/18 23:06 Dose: 15 units Loperamide HCl (Imodium -) 2 mg PO PRN PRN PRN Reason: DIARRHEA Loratadine (Claritin -) 10 mg PO DAILY [facility] Last Admin: 04/01/18 10:30 Dose: 10 mg Metolazone (Zaroxolyn -) 2.5 mg PO MOWEFR@1000 [facility] Last Admin: 03/30/18 10:07 Dose: 2.5 mg Pantoprazole Sodium (Protonix -) 20 mg PO DAILY [facility] Last Admin: 04/01/18 10:30 Dose: 20 mg Propranolol HCl (Inderal La -) 160 mg PO DAILY [facility] Last Admin: 04/01/18 10:30 Dose: 160 mg Solifenacin (Vesicare -) 5 mg PO BID [facility] Last Admin: 04/01/18 10:30 Dose: 5 mg Valsartan (Diovan -) 80 mg PO DAILY [facility] Last Admin: 04/01/18 10:30 Dose: 80 mg - Objective Vital Signs: Vital Signs Temperature 97.5 F L 04/01/18 09:00 Pulse Rate 59 L 04/01/18 09:00 Respiratory Rate 20 04/01/18 09:00 Blood Pressure 103/47 L 04/01/18 09:00 O2 Sat by Pulse Oximetry (%) 94 L 04/01/18 01:00 Constitutional: Yes: No Distress, Obese Cardiovascular: Yes: Regular Rate and Rhythm, S1, S2 Respiratory: Yes: CTA Bilaterally Gastrointestinal: Yes: Normal Bowel Sounds, Soft. No: Tenderness Integumentary: Yes: Other (+ EXCORIATIONS, CHEST/EXT) Labs: CBC, BMP 03/31/18 06:30 03/31/18 06:30 INR, PTT INR 2.04 (0.83-1.09) H 03/29/18 15:30 Assessment/Plan PRURITIC RASH ? ETIO + URINE C/S LIKELY CONTAMINANT D/C [facility] OUTPATIENT DERMATOLOGY CONSULT
[2018-04-01] MEDS: INSULIN (LEVEMIR) 100 UNITS/ML UNITS SQ SCH (22:22)
[2018-04-01] MEDS: ATORVASTATIN CA 10 MG TABLET (FP) PO SCH (22:22)
[2018-04-02] MEDS: INSULIN SLIDING SCALE (NOVOLOG) 1 VIAL SQ SCH (06:21)
[2018-04-02] MEDS: ARTIFICIAL TEARS (POLYVINYL ALCOHOL) OPTH DROPS OU SCH (10:38)
[2018-04-02] MEDS: BETAMETHASONE VALERATE 0.1% CREAM 15 GM TUBE TP SCH (10:38)
[2018-04-02] MEDS: FLUTICASONE PROP 0.05% 16 GM NASAL SPRAY NS SCH (10:39)
[2018-04-02] MEDS: diphenhydrAMINE HCL 25 MG CAPSULE (FP) PO SCH (10:41)
[2018-04-02] MEDS: LORATADINE 10 MG TABLET PO SCH (10:41)
[2018-04-02] MEDS: PANTOPRAZOLE 20 MG TABLET (FP) PO SCH (10:42)
[2018-04-02] MEDS: APIXABAN 5 MG TABLET PO SCH (10:42)
[2018-04-02] MEDS: VALSARTAN 80 MG TABLET (UD) PO SCH (10:42)
[2018-04-02] MEDS: METOLAZONE 2.5 MG TABLET (FP) PO SCH (10:42)
[2018-04-02] MEDS: SOLIFENACIN SUCCINATE 5 MG TAB (FP) PO SCH (10:42)
[2018-04-02] MEDS: FOLIC ACID 1 MG TABLET (FP) PO SCH (10:42)
--- NOTE | 2018-04-02 11:01 | DS ---
Physical Examination Vital Signs: Vital Signs Temperature 98.0 F 04/02/18 07:03 Pulse Rate 79 04/02/18 07:03 Respiratory Rate 20 04/02/18 07:03 Blood Pressure 120/67 04/02/18 07:03 O2 Sat by Pulse Oximetry (%) 94 L 04/01/18 01:00 Findings/Remarks: pt seen/ examined chart reviewed all f/u noted awake/ comfortable denies pain afebrile off abx Constitutional: Yes: No Distress, Calm Eyes: Yes: Conjunctiva Clear Neck: Yes: Supple Cardiovascular: Yes: Regular Rate and Rhythm Respiratory: Yes: CTA Bilaterally Gastrointestinal: Yes: Soft Edema: No Integumentary: Yes: Rash Neurological: Yes: Alert Psychiatric: Yes: Alert Labs: CBC, BMP 03/31/18 06:30 03/31/18 06:30 Discharge Summary Reason For Visit: URINARY TRACT INFECTION, FALL Current Active Problems A-fib (Acute) BPH (benign prostatic hyperplasia) (Acute) Bed bug bite (Acute) Diabetes mellitus (Acute) Fall (Acute) Frequent falls (Acute) Generalized weakness (Acute) HTN (hypertension) (Acute) History of CVA with residual deficit (Acute) Pre-diabetes (Acute) Rash and nonspecific skin eruption (Acute) Toxic metabolic encephalopathy (Acute) UTI (urinary tract infection) (Acute) Hospital Course: In summary This is a 88 y/o man from [facility] with a PMHx of: Afib (on Eliquis), PPM, HTN, DM, CVA (right hand residual), CKD, BPH, Generalized Weakness. Who presents to the ED for evaluation frequent falls s/p fall out of w/c today. Patient reports while attending [facility] in the [facility] he fell out of the wheelchair hitting his face. Patient wears glasses and reports an abrasion to the bridge of his nose. Patient reports chronic itching to his body.Patient denies LOC. Patient denies fever, chills, cough, SOB, CP, palpitations, N/V/D, constipation. While in the ED per ED staff bed bugs where noted on the patient. Patient was placed in isolation. ER course was notable for: (1) UA- +nitrate, +1 leukocyte esterase (2) Head CT- no evidence of acute intracranial pathology, chronic left basal ganglia/frontal dominguez radiata infarct (3) C- Spine CT- neg fx, multi level degenerative changes pt treated for possible scabies abx d/c as culture -ve u/c - contaminant overall stable will d/c back to [facility]atology consult in [facility] fall precautions-- May need to reassess need for a/c if frequent falls meds reconcilled flomax d/c ed and observe -- due to riesk of falls i also d/c glucotrol monitor discussed with nursing staff also time spend about 35 min in examining / documenting and coordating care Condition: Stable - Instructions Referrals: Teddy Reyes MD [Primary Care Provider] - Disposition: INTERMEDIATE FACILITY - Home Medications Comprehensive Discharge Medication List: Ambulatory Orders Amlodipine Besylate 5 mg PO BID 03/29/18 Apixaban [Eliquis] 5 mg PO BID 03/29/18 Folic Acid 1 mg PO DAILY 03/29/18 Furosemide 40 mg PO DAILY 03/29/18 Insulin (Levemir) [Levemir Vial] 15 unit SQ DAILY 03/29/18 Loratadine 10 mg PO DAILY 03/29/18 Omeprazole 20 mg PO DAILY 03/29/18 Oxybutynin Chloride [Ditropan Xl] 10 mg PO BID 03/29/18 Propranolol HCl [Propranolol HCl ER] 160 mg PO DAILY 03/29/18 Propylene Glycol/Peg 400/Pf [Lubricant Eye 0.4%-0.3% Drop] 1 each OP DAILY 03/29 Simvastatin 20 mg PO HS 03/29/18 Sitagliptin Phosphate [Januvia] 100 mg PO DAILY 03/29/18 Valsartan [Diovan] 80 mg PO DAILY 03/29/18 Betamethasone Valerate [Valisone 0.1% Cream -] 1 applic TP BID tube 04/02/18 Insulin Sliding Scale [Novolog Vial Sliding Scale -] 1 vial SQ BIDAC units Metolazone [Zaroxolyn -] 2.5 mg PO MOWEFR@1000 tablet 04/02/18
[2018-04-02] MEDS: FUROSEMIDE 40 MG TABLET (FP) PO SCH (11:15)
[2018-04-02 14:34] VITALS: TEMP 97.5
[2018-04-02 14:41] VITALS: BP 130/53; PULSE 57
== END 2018-04-02 15:30 | DRG 689 ==
LOC: JER 14:57 → JERBED 20:47 → J4S 03-30 01:54 → OBSVTOIN 03-31 12:58 → J6S 03-31 22:56
PROVIDERS: ADMIT Internal Medicine; ATTEND Internal Medicine
DX: N39.0 Urinary tract infection, site not specified (principal); G93.41 Metabolic encephalopathy; I25.10 Atherosclerotic heart disease of native coronary artery without angina pectoris; E78.5 Hyperlipidemia, unspecified; I48.91 Unspecified atrial fibrillation; B86 Scabies; S00.31XA Abrasion of nose, initial encounter; N40.0 Benign prostatic hyperplasia without lower urinary tract symptoms; R53.1 Weakness; W57.XXXA Bitten or stung by nonvenomous insect and other nonvenomous arthropods, initial encounter; R21 Rash and other nonspecific skin eruption; R29.6 Repeated falls; I12.9 Hypertensive chronic kidney disease with stage 1 through stage 4 chronic kidney disease, or unspecified chronic kidney disease; E11.22 Type 2 diabetes mellitus with diabetic chronic kidney disease; N18.9 Chronic kidney disease, unspecified; W05.0XXA Fall from non-moving wheelchair, initial encounter; Y92.89 Other specified places as the place of occurrence of the external cause; Y99.8 Other external cause status; Z66 Do not resuscitate
CPT/HCPCS: 36415; 70450-TC; 71045-TC-FY; 72125-TC; 80048; 80053; 81003; 81015; 82550; 82962; 83036; 83735; 84100; 84443; 84484; 85025; 85610; 85730; 87086; 87186; 93005; 93010; 97116-GP; 97162-GP; 99285-25; G0378